=== PATIENT | male | born 1985 | race Caucasian/White ===

== ENCOUNTER 2018-08-05 08:26 | Day surgery (SDC) | payer BC ==
[2018-07-31 13:22] LABS: Absolute Lymphocytes (CBC) 1.6 K/uL (0.7-4.9); Absolute Monocytes 0.5 K/uL (0.1-1.3); Absolute Neutrophil 3.4 K/uL (1.8-8.0); Basophils % 0.4 % (0-1.3); Hematocrit 46.4 % (39.6-49.0); Lymphocytes % 29.4 % (15.3-44.8); MCH 29.1 pg (27.0-35.0); MCV 84.2 fL (80-100); MPV 7.3 fL (7.6-11.3); Monocytes % 8.7 % (3.3-12.3); RBC Red Blood Cell Count 5.51 M/uL (4.33-5.43)
[2018-07-31 13:36] LABS: Protime INR 0.97
--- NOTE | 2018-07-31 13:42 | RAD REPORT ---
EXAM DESCRIPTION: RAD - Chest Pa And Lat (2 Views) - 07/31/2018 1:36 pm CLINICAL HISTORY: pre op Chest pain. COMPARISON: Abdomen 1 View ([facility]) dated 07/31/2018 FINDINGS: The lungs are clear. The heart is normal in size. No displaced fractures. IMPRESSION: No acute or concerning finding suspected.
[2018-07-31 13:48] LABS: Phosphorus 2.9 mg/dL (2.5-4.9); Potassium 4.7 mmol/L (3.5-5.1); Uric Acid 7.4 mg/dL (3.5-7.2)
--- NOTE | 2018-07-31 16:27 | EKG ---
Test Date: 2018-07-31 Test Time: 13:07:37 [employer] Professor: NANCY MEASUREMENT RESULTS: Intervals: Rate: 68 IA: 162 QRSD: 102 QT: 384 QTc: 408 [place]: P: 32 IA: 162 QRS: -13 T: -2 INTERPRETIVE STATEMENTS: Normal sinus rhythm Minimal voltage criteria for LVH, may be normal variant Borderline ECG No previous ECG available for comparison Electronically Signed On 07-31-18 16:25:57 CDT by Ben Franco
--- NOTE | 2018-08-05 08:56 | RAD REPORT ---
EXAM DESCRIPTION: RAD - Abdomen 1 View ([facility]) - 08/05/2018 8:48 am CLINICAL HISTORY: Left-sided renal calculus Pain COMPARISON: Abdomen 1 View ([facility]) dated 07/31/2018 FINDINGS: The bowel gas pattern is non-obstructive. No evidence of free air or pneumatosis. Previous ly noted vague calculus the left of the sacrum in the pelvis is not well identified on today's study.
[2018-08-05 09:01] LABS: Urine Appearance CLEAR; Urine Bilirubin NEGATIVE (NEG); Urine Blood NEGATIVE (NEG); Urine Color YELLOW; Urine Glucose NEGATIVE (NEG); Urine Protein NEGATIVE (NEG); Urine Urobilinogen 0.2 mg/dL (0.2-1.0)
[2018-08-05] MEDS ORDERED: GENTAMICIN 100 MG/100 ML BAG 100 MG/100 ML BAG IV ONE (09:16)
[2018-08-05] MEDS ORDERED: Ringers Lactate 1,000 ML IV ONE (09:16)
[2018-08-05 09:42] LABS: Urine Bacteria NONE SEEN /HPF (NONE SEEN); Urine RBC <5 /HPF (NONE SEEN)
[2018-08-05 09:43] LABS: Urine Culture Reflex Order NOT NEEDED
[2018-08-05] MEDS ORDERED: PROPOFOL 200 MG/20 ML VIAL IV ONE (09:49)
[2018-08-05] MEDS ORDERED: FENTANYL CITR 100 MCG/2 ML ONE (09:49)
[2018-08-05] MEDS ORDERED: MIDAZOLAM HCL 2 MG/2 ML INJ ONE (09:49)
[2018-08-05] MEDS ORDERED: LIDOCAINE 2% INJ, MPF 2 ML 1 ML ONE (10:05)
[2018-08-05] MEDS ORDERED: KETOROLAC 30 MG/ML INJ ONE (10:48)
[2018-08-05] MEDS ORDERED: ONDANSETRON HCL 40 MG/20 ML VIAL ONE (10:52)
[2018-08-05] MEDS ORDERED: HYDROCODONE/APAP 5/325 MG TAB ONE (12:03)
== END 2018-08-05 12:40 | disposition home or self-care (01) ==
LOC: OR 08:26
PROVIDERS: ATTEND Urology
PROC: BT1FZZZ Fluoroscopy of Left Kidney, Ureter and Bladder (ICD-10-PCS; 2018-08-05)
PROC: 0TF4XZZ Fragmentation in Left Kidney Pelvis, External Approach (ICD-10-PCS; principal; 2018-08-05 10:45)
DX: N20.2 Calculus of kidney with calculus of ureter (principal)
CPT/HCPCS: 36415; 50590; 71046; 74018; 80048; 81001; 82310; 84100; 84550; 85025; 85610; 85730; 93005; J1580; J2250; J2405; J3010; J3490; Q9967